=== PATIENT | female | born 1955 | race Caucasian/White ===

== ENCOUNTER 2017-06-18 18:57 | Inpatient (IN) | payer OTHER ==
[~2017-06-18] VITALS: Ht 172.7 cm; Wt 138.0 kg
--- NOTE | ~2017-06-18 | EEG ---
[facility] [place] [address] ELECTROENCEPHALOGRAM Name: MARISELA JOHN CURT Room #: 204-P ADM IN M.R.#: [id number] Admission: 06/18/17 Attend Phys: Kaden Ferguson DO Discharge: Date of : 51 Report #: [id number] THIS REPORT FOR: //name// CC: Justin Thapa DATE OF SERVICE: 06/19/2017 This patient is being evaluated for altered mental status. The EEG was done by placing the electrodes by standard 10-20 system of electrode placement. Both referential and sequential montages were used for recording. Background activity in this patient's EEG is about 7 Hz and 30 microvolt. On the left side, the activity is different than the right side. On the left side either the patient has a breach rhythm or may be some sharper activity is noticed. Photic stimulation is unremarkable. IMPRESSION: This is an abnormal EEG because it is disorganized and poorly formed in general. That is a nonspecific finding which can occur with encephalopathy, effect of psychotropic medication, dementia, etc. On the left side, some epileptiform activity may be present, but it is difficult to tell. No clear cut spike and slow wave activity was noticed on the left side. Thank you very much for this referral. <ELECTRONICALLY SIGNED> By: Rickie Trimble MD 06/21/172151 31 38 MD jasen Martinez
--- NOTE | ~2017-06-18 | HC ---
[facility] [place] [address] CONSULTATION Name: MARISELA JOHN CURT Room #: 204-P ADM IN M.R.#: [id number] Admission: 06/18/17 Attend Phys: Justin Ochoa MD Discharge: Date of : 51 Report #: [id number] THIS REPORT FOR: //name// CC: Justin Thapa DATE OF SERVICE: 06/18/2017 REFERRING PROVIDER: Justin Ochoa MD REASON FOR CONSULT: Abdominal pain with decreased level of consciousness and sepsis. HISTORY OF PRESENT ILLNESS: The patient is a 61-year-old obese female with a history of seizures and brain aneurysms who has undergone placement of a COLOR SPRAYER shunt as well as sustaining multiple strokes with left hemiparesis. The patient presented from her correction facility for complaints of altered mental status with her last known baseline mental status being 4 days ago. The patient was complaining of abdominal pain on palpation and as such, a thorough workup has been obtained in the Emergency Room in the form of laboratories and a CT scan of the abdomen and pelvis. The patient's labs showed a marked leukocytosis with a white blood cell count of 32.1 thousand and her urinalysis is consistent with a urinary tract infection. CT scan shows distended gallbladder with abnormal wall thickening and significant pericholecystic fluid tracking into the pericolic gutter from severe cholecystitis. Of note, the patient did present with fevers to 103 degrees as well as severe tachycardia. As the patient appears to have early sepsis with tachycardia, mild hypotension and is febrile all while having acute cholecystitis, indication was for admission and I am now asked to evaluate from a surgical standpoint. PAST MEDICAL HISTORY: Brain aneurysm repair x 2, prior stroke with left hemiparesis, seizure disorder, obstructive sleep apnea, morbid obesity, hypothyroidism, hypertension, prior DVTs and neuropathy. OUTPATIENT MEDICATIONS: Dilantin, senna S, zinc, Lipitor, baclofen, Cymbalta, Lasix, Neurontin, potassium, Synthroid, Megace, calcium and vitamin D3, baby aspirin, multivitamin, lactulose, Tylenol, nystatin powder and [place]son p.r.n. ALLERGIES: PENICILLIN. SOCIAL HISTORY: The patient does not utilize tobacco, alcohol or illicit drugs. FAMILY HISTORY: Reviewed and noncontributory. REVIEW OF SYSTEMS: Unobtainable secondary to the patient's altered mental status. [address] [place] [address] CONSULTATION Name: MARISELA JOHN CURT Room #: 204-P [facility] IN M.R.#: [id number] Admission: 06/18/17 Attend Phys: Justin Ochoa MD Discharge: Date of : 51 Report #: [id number] PHYSICAL EXAMINATION: VITAL SIGNS: Temperature 38.8, pulse 112, respirations 18, blood pressure 102/59. She weighs 374 pounds. GENERAL: She has altered mental status and moans with abdominal exam. She appears chronically ill. HEENT: Normocephalic, atraumatic. Pupils are equal, round, reactive to light. Her sclerae are nonicteric. NECK: Supple, without lymphadenopathy. Trachea midline. HEART: Tachycardic, but regular rhythm. LUNGS: Decreased breath sounds at their bases bilaterally. ABDOMEN: Obese, soft, nondistended. She has overt tenderness to palpation of the right upper quadrant with mild guarding. GENITOURINARY: Normal external female genitalia. EXTREMITIES: 4+ edema in her left lower leg, 1+ edema of the right lower leg consistent with her history of left lower extremity DVT. NEUROLOGIC: Moans when spoken to and moans loudly with exam. She reacts to pain, but does not follow commands or answer questions. PSYCHIATRIC: Unobtainable secondary to decreased level of consciousness. SKIN AND INTEGUMENT: No abnormal lesions or moles. LABORATORY AND X-RAY DATA: CBC shows white blood cell count of 32.1 thousand, hemoglobin 16.3, platelets 193,000. Her creatinine is 0.9. Liver function enzymes show only an elevation of alkaline phosphatase to 151. Her albumin is grossly low at 2.8. INR was normal at 1.2 with a PTT of 27.7. CT scan of the head shows chronic changes with a COLOR SPRAYER shunt in place. Urinalysis shows large bacteria and white blood cells with no squamous epithelial cells. CT scan of the abdomen and pelvis as per HPI shows a distended inflamed gallbladder with pericholecystic fluid tracking into the pericolic gutter consistent with severe acute cholecystitis. ASSESSMENT AND PLAN: A 61-year-old morbidly obese female with what appears to be early sepsis and decreased level of consciousness from severe acute cholecystitis. The patient does have a history of a DVT, multiple strokes, has severe protein calorie malnutrition and does not appear to be an acceptable surgical candidate emergently at this time. As such, the patient will be initiated on broad-spectrum IV antibiotic therapy and I will ask Interventional Radiology to place a percutaneous cholecystostomy tube for decompression and improvement in her overall clinical status. I did spend greater than 60 minutes evaluating the patient as well as discussing with various other providers involved in her care and all are in agreeance as to the approach moving forward. Infectious Disease will be asked to evaluate for both the cholecystitis and urinary tract infection for appropriate antibiotic therapy choices. [facility] [address] [place] [address] CONSULTATION Name: MARISELA JOHN CURT Room #: 204-P ADM IN M.R.#: [id number] Admission: 06/18/17 Attend Phys: Justin Ochoa MD Discharge: Date of : 51 Report #: [id number] I sincerely appreciate this consult. I will follow closely and leave any further recommendations in the patient's chart as appropriate. <ELECTRONICALLY SIGNED> By: Clarice Askew MD, TAMI 06/19/17 1512 1109 [id number] Clarice Askew MD, FACS /nt
--- NOTE | ~2017-06-18 | HC ---
[facility] [place] [address] CONSULTATION Name: MIRTHA JOHNORARoxanne ELIAS Room #: 204-P ADM IN M.R.#: [id number] Admission: 06/18/17 Attend Phys: Kaden Ferguson DO Discharge: Date of : 51 Report #: [id number] THIS REPORT FOR: //name// CC: Justin Thapa REASON FOR CONSULTATION: I was asked to evaluate concerning acute cholecystitis. HISTORY OF PRESENT ILLNESS: The patient was a 61-year-old with underlying history of cerebral aneurysms, POPULATION HEALTH MANAGER shunt with hydrocephalus and seizure disorder. She has a left hemiparesis from previous stroke and resides at [facility]. She presents now due to change in mental status. Question whether she had had a seizure. It appears that this symptom onset has been several days. The patient was unable to give any details of her history. She was admitted through the Emergency Room and placed on vancomycin and ceftriaxone. She had temperature up to 101.5 degrees. Hemodynamically, she has been stable and has required 3 liters of oxygen per nasal cannula. No nausea or vomiting. No diarrhea. Right upper extremity PICC was placed. ALLERGIES: PENICILLIN. Does tolerate cephalosporins. PAST MEDICAL HISTORY: Cerebral aneurysms, status post repair, stroke with left hemiparesis, seizure disorder, cerebrovascular disease, obstructive sleep apnea, hypothyroidism, obesity, hypertension, peripheral neuropathy, DVT, depressive disorder, hyperlipidemia, endometrial hyperplasia. SOCIAL HISTORY: Former smoker. No significant alcohol intake. ALLERGIES: PENICILLIN. MEDICATIONS: Prior to her admission included Dilantin, Lipitor, baclofen, Cymbalta, Lasix, Neurontin, potassium, Synthroid, Megace, calcium with vitamin D, aspirin, multivitamin, lactulose, hydrocodone. REVIEW OF SYSTEMS: The patient was unable to give any history. PHYSICAL EXAMINATION: VITAL SIGNS: Afebrile and hemodynamically stable. GENERAL: She was alert. Dense left hemiparesis. HEENT: Unremarkable. NECK: Supple. LUNGS: Clear anteriorly. HEART: Regular. ABDOMEN: Distended, diffusely tender. Indwelling Vasquez catheter. EXTREMITIES: Unremarkable. [facility] [address] [place] [address] CONSULTATION Name: MARISELA JOHN [facility] Room #: 204-P [facility] IN .R.#: [id number] Admission: 06/18/17 Attend Phys: Kaden Ferguson DO Discharge: Date of : 51 Report #: [id number] LABORATORY STUDIES: Hemoglobin 15.7, WBC 28.9 with 6% bands, platelet count 120,000. Sodium 138, potassium 4.4, bicarbonate of 27, creatinine 0.8, alkaline phosphatase 135, AST 24, ALT 14, bilirubin 0.4. Urinalysis, a few wbc's, many bacteria. Blood and urine cultures pending. CT scan of the abdomen shows right effusion with atelectasis, gallbladder inflammation with stones and fluid tracking around the gallbladder as well as into the right pericolic gutter and a small amount of fluid in the pelvis. CT scan of the head showed a POPULATION HEALTH MANAGER shunt in place. IMPRESSION AND PLAN: A 61-year-old [facility] resident with multiple comorbidities presents now with acute cholecystitis. I am suspecting some of the fluid in the pericolic gutter and pelvis, may be related to her POPULATION HEALTH MANAGER shunt. She does have inflammation and fluid around the gallbladder. Appears relatively high risk for surgical intervention. I have discussed with General Surgery and agree with need for gallbladder drainage. She will have a percutaneous cholecystostomy tube placed today. We will send fluid for culture. We will await blood cultures and continue with broad antibiotic coverage including vancomycin, cefepime and metronidazole. We will see how she responds clinically to decide next step in her care. <ELECTRONICALLY SIGNED> By: Ubaldo Conner MD 06/20/17 0915 1004 1249 Ubaldo Conner MD /nt
--- NOTE | ~2017-06-18 | HC ---
[facility] [place] [address] CONSULTATION Name: MARISELA JOHN Room #: 204-P ADM IN M.R.#: [id number] Admission: 06/18/17 Attend Phys: Kaden Ferguson DO Discharge: Date of : 51 Report #: [id number] THIS REPORT FOR: //name// CC: Justin Thapa DATE OF SERVICE: 06/19/2017 HISTORY OF PRESENT ILLNESS: This is a 61-year-old female patient who is unable to provide any history. I talked to the ER physician who took care of this patient last night and reviewed the records in the computer. The patient provided virtually no history. This patient had been in this hospital before and has seen Neurology Service before. I reviewed those records. It looks like this patient had aneurysm twice and that left him with paralysis on the left side. That also caused her to have seizures, but the further history about the seizure is not very clear. She lives in a intermediate. I reviewed the intermediate record and it would appear that she is on Dilantin as well as Vimpat. Presently she is n.p.o., so I have asked them to put her on IV medication with the same do and she had some jerking movements, but the history is not very well defined. She has been admitted in the past with a urinary tract infection and this time she is admitted with infection, but the source is not clear, but the suspected source is gallbladder. REVIEW OF SYSTEMS: I carried out the 14-point review of systems from the record. It looks like this patient had aneurysm twice. She has a history of seizure. She has an infection. She did have some jerking movement, but it is not clear whether that was really seizure or not. They had question about shunt, but I told them that is typically addressed by Neurosurgery. From the record I tried to do 14-point review and at some point she had pleural effusion, deep venous thrombosis, atelectasis, hypothyroidism. That was the relevant 14-point review of systems I can carry out. PAST MEDICAL HISTORY: Positive for aneurysm and seizure. FAMILY HISTORY: Unavailable, but she says she does not know anybody who had a stroke. SOCIAL HISTORY: She lives in a intermediate. PHYSICAL EXAMINATION: Pretty limited. She is sleepy, but she wakes up. When she wakes up, she does not know what month it is. She does not know what day it is. She does not know what hospital she is in. Record indicates that she has more memory than that. Cranial nerve examination 2-12 was attempted. She has a left facial palsy, I cannot tell about hemianopsia in this patient. She has a dense left hemiplegia. She does not know about the sensation. This hemiplegia has been present for a long time. She does not cooperate much with the reflexes [facility] [address] [place] [address] CONSULTATION Name: MARISELA JOHN CURT Room #: 204-P [facility] IN M.R.#: [id number] Admission: 06/18/17 Attend Phys: Kaden Ferguson DO Discharge: Date of : 51 Report #: [id number] or tone and she did not understand much instructions about cerebellar signs. I could not have a very good look at the patient's fundus. She is an obese person who may have some edema on the left leg. She is moderately built. I believe she can hear and her vision is adequate. There is no thyroid mass. Pulses are difficult to feel. Cardiac examinations appear noncontributory. There is no respiratory difficulty or rhonchi. DIAGNOSTIC DATA: She did have a CT scan of the head, which showed chronic changes, but no acute changes. LABORATORY DATA: Indicate a white count of 28.9. IMPRESSION: This patient appeared to have a systemic infection. She appeared to have encephalopathy. It is unlikely there is any central nervous system infection. Infectious Disease is going to follow up this patient and they are going to address that question. Some history of jerking is available. I do not believe they were seizure. I will get an EEG done to exclude that. We have put her on IV Dilantin and Vimpat. Once she is able to take p.o., we would like to switch her to p.o. The main management is going to be systemic. RECOMMENDATIONS: 1. We will check an EEG, although I do not think she is actively seizing. 2. Continue IV anticonvulsant till she is allowed to take p.o. 3. I do not think any further imaging study is needed at the moment. 4. We will see if she improves with improvement in systemic conditions. Dr. Gil will follow up this patient from tomorrow onward. <ELECTRONICALLY SIGNED> By: Rickie Trimble MD 06/21/17 2151 1102 1304 Rickie Trimble MD /nt
--- NOTE | ~2017-06-18 | EKG ---
[address] [employer] [place] [address] ELECTROCARDIOGRAM REPORT Name: DORAMARISELA Room #: 204-P ADM IN M.R.#: [id number] Admission: 06/18/17 Attend Phys: Justin Ochoa MD Discharge: Date of : 51 Report #: [id number] THIS REPORT FOR: //name// [facility] ED Test Date: 2017-06-18 Test Time: 19:12:25 Pat Name: MARISELA JOHN Department: Room: Gender: F Forensic Investigator: Iris MOBLEY : 1955 Requested By: Ubaldo Edgar Order Number: [id number] MD: Johny Post Measurements Intervals Satin Rate: 96 P: 134 PA: 210 QRS: 17 QRSD: 86 T: 18 QT: 354 QTc: 448 Interpretive Statements Sinus rhythm Nonspecific ST segment abnormalities Compared to ECG 07/05/2014 10:56:32 T-wave abnormality no longer present Electronically Signed On 06-19-2017 7:35:21 CDT by Johny Post [email or web address] <ELECTRONICALLY SIGNED> By: Johny Post MD 06/19/17 0735 11 11 Johny Post MD /MATT
[~2017-06-18 18:57] MED LIST: APAP500 PO; AQUACEL; ASPERDRINK81 MG PO; BACLOFEN20 MG PO; BAYER CHEWABLE81 MG PO; BISA-LAX5 MG PO; BOUDREAUXS10 GM; CONSTULOSE10 GM/15 M PO; CYMBALTA60 MG PO; DILANTIN 100 M100 MG PO; FUROSEMIDE 80 M80 M1 PO; HYDROCODONE-AP1 EAC6 PO; KLOR-CON 1010 MEQ PO; LEVOTHYROXIN0.075 MG PO; LEVOTHYROXINE0.2 M1 PO; LIPITOR20 MG PO; MEGESTROL ACETA40 MG PO; MELOXICAM15 MG PO; MULTIVITAMINS1 EAC7 PO; NEURONTIN600 MG PO; NYSTATIN 100,0015 G1; ONE DAILY MULT1 EAC2 PO; OYSTER SHELL C1 EA14 PO; SENNA S TABLET1 EACH PO; VIMPAT150 MG PO; VIMPAT50 MG PO
[2017-06-18 18:58] VITALS: BP 102/59
[2017-06-18 19:48] LABS: HEMATOCRIT 48.2 % (37.0-47.0); HEMOGLOBIN 16.3 gm/dL (12.0-15.0); MCH 31.2 pg (26.0-34.0); MCHC 33.9 g/dL (28.0-37.0); MCV 91.8 fL (80.0-100.0); RBC 5.24 mil/uL (4.20-5.00); RDW 15.7 % (10.5-14.5); WBC 32.1 thou/uL (4.0-11.0)
[2017-06-18 20:00] LABS: ANION GAP 7 mmol/L (7-16); BUN 17 mg/dL (7-18); CALCIUM 9.2 mg/dL (8.5-10.1); CHLORIDE 101 mmol/L (98-107); CO2 30 mmol/L (21-32); CREATININE 0.9 mg/dL (0.6-1.0); GLUCOSE 127 mg/dL (74-106); SODIUM 138 mmol/L (136-145)
[2017-06-18 20:04] LABS: APTT 27.7 Seconds (24.5-32.8); INR 1.2; PROTIME 11.8 Seconds (9.3-11.4)
[2017-06-18 20:09] LABS: ALBUMIN 2.8 g/dL (3.4-5.0); MAGNESIUM 1.9 mg/dL (1.8-2.4); SGOT 27 U/L (15-37); SGPT 27 U/L (30-65); TOTAL BILIRUBIN 0.4 mg/dL (<0.1-1.0); TOTAL PROTEIN 7.4 g/dL (6.4-8.2); TROPONIN-I < 0.04 ng/mL (<0.06)
[2017-06-18 20:23] LABS: ABSOLUTE NEUTROPHILS 27.6 thou/uL (1.4-8.2)
[2017-06-18 20:24] LABS: PLATELET COUNT 193 thou/uL (150-400)
[2017-06-18 20:25] LABS: LARGE PLATELETS RARE
[2017-06-18 20:33] LABS: URINE BILIRUBIN NEGATIVE (Negative); URINE BLOOD TRACE (Negative); URINE CLARITY SL CLOUDY; URINE COLOR YELLOW; URINE GLUCOSE-RANDOM* NEGATIVE (Negative); URINE KETONES NEGATIVE (Negative); URINE NITRITE-REFLEX NEGATIVE (Negative); URINE PROTEIN (DIPSTICK) NEGATIVE (Negative); URINE SPECIFIC GRAVITY >= 1.030 (1.005-1.035); URINE UROBILINOGEN 0.2 E.U./dl (0.2-1.0)
[2017-06-18 20:35] LABS: URINE LEUKOCYTES-REFLEX 1+ (Negative)
[2017-06-18 20:44] LABS: AMP/METHAMP Negative (Negative); BARBITURATES Negative (Negative); BENZODIAZEPINES Negative (Negative); COCAINE Negative (Negative); METHADONE Negative (Negative); OPIATES Negative (Negative); PCP Negative (Negative)
[2017-06-18 20:46] LABS: SQUAMOUS 0-3 Few /LPF (0-3)
[2017-06-18 20:47] LABS: URINE RBC 0-2 Rare /HPF (0-2); URINE WBC-REFLEX 6-15 Few /HPF (0-5); WBC CLUMPS Few (None Seen)
[2017-06-18 20:48] LABS: BACTERIA-REFLEX >30 Many /HPF (None Seen); CASTS None Seen /LPF (None Seen); CRYSTALS None Seen /LPF (None Seen)
[2017-06-18 22:09] VITALS: BP 135/59
[2017-06-18 22:40] VITALS: BP 114/40
[2017-06-19 00:17] VITALS: BP 127/50
[2017-06-19] MEDS ORDERED: VIMPAT200 MG PO (02:47)
[2017-06-19] MEDS ORDERED: MIRALAX17 GM PO (02:50)
[2017-06-19] MEDS ORDERED: XARELTO15 MG PO (02:51)
[2017-06-19] MEDS ORDERED: SYNTHROID175 MCG PO (02:54)
[2017-06-19] MEDS ORDERED: JUVEN PACKET1 EAC1 PO (03:06)
[2017-06-19 03:29] LABS: HEMATOCRIT 49.2 % (37.0-47.0); HEMOGLOBIN 15.7 gm/dL (12.0-15.0); MCV 93.6 fL (80.0-100.0); PLATELET COUNT 120 thou/uL (150-400); RBC 5.25 mil/uL (4.20-5.00); RDW 16.3 % (10.5-14.5); WBC 28.9 thou/uL (4.0-11.0)
[2017-06-19 03:44] LABS: ALBUMIN 2.2 g/dL (3.4-5.0); CALCIUM 8.5 mg/dL (8.5-10.1); CREATININE 0.8 mg/dL (0.6-1.0); TOTAL BILIRUBIN 0.4 mg/dL (<0.1-1.0); TOTAL PROTEIN 7.1 g/dL (6.4-8.2)
[2017-06-19 03:47] LABS: POTASSIUM 4.4 mmol/L (3.5-5.1)
[2017-06-19 04:12] LABS: ABSOLUTE NEUTROPHILS 25.4 thou/uL (1.4-8.2); ANISOCYTOSIS 1+; LARGE PLATELETS OCCASIONAL; TOXIC GRANULATION 1+
[2017-06-19 04:44] VITALS: BP 128/44
[2017-06-19 08:15] VITALS: BP 125/66
[2017-06-19 11:12] VITALS: BP 126/55
[2017-06-19 16:21] VITALS: BP 140/60
[2017-06-19 20:00] VITALS: BP 134/43
[2017-06-20 04:06] VITALS: BP 94/45
[2017-06-20 04:52] LABS: ABSOLUTE NEUTROPHILS 17.9 thou/uL (1.4-8.2); BASOPHILS 0.6 % (0.0-2.0); EOSINOPHILS 0.1 % (0.0-3.0); HEMATOCRIT 37.8 % (37.0-47.0); LYMPHOCYTES 4.6 % (24.0-44.0); MCH 30.1 pg (26.0-34.0); MCHC 32.6 g/dL (28.0-37.0); MCV 92.3 fL (80.0-100.0); MONOCYTES 4.5 % (1.0-8.0); PLATELET COUNT 156 thou/uL (150-400); POLYS 90.2 % (36.0-66.0); RBC 4.09 mil/uL (4.20-5.00); RDW 15.9 % (10.5-14.5); WBC 19.9 thou/uL (4.0-11.0)
[2017-06-20 04:55] LABS: HEMOGLOBIN 12.3 gm/dL (12.0-15.0)
[2017-06-20 05:01] LABS: CALCIUM 8.2 mg/dL (8.5-10.1); CREATININE 0.6 mg/dL (0.6-1.0); POTASSIUM 3.4 mmol/L (3.5-5.1)
[2017-06-20 08:56] VITALS: BP 133/54
[2017-06-20 11:43] VITALS: BP 122/76
[2017-06-20 15:47] VITALS: BP 129/48
[2017-06-20 19:42] VITALS: BP 127/57
[2017-06-21 04:48] VITALS: BP 129/55
[2017-06-21 06:48] LABS: ABSOLUTE NEUTROPHILS 11.1 thou/uL (1.4-8.2); BASOPHILS 0.4 % (0.0-2.0); EOSINOPHILS 0.4 % (0.0-3.0); HEMOGLOBIN 11.5 gm/dL (12.0-15.0); LYMPHOCYTES 7.8 % (24.0-44.0); MCH 30.3 pg (26.0-34.0); MCHC 32.8 g/dL (28.0-37.0); MCV 92.2 fL (80.0-100.0); MONOCYTES 5.3 % (1.0-8.0); PLATELET COUNT 162 thou/uL (150-400); POLYS 86.1 % (36.0-66.0); RDW 15.4 % (10.5-14.5); WBC 12.9 thou/uL (4.0-11.0)
[2017-06-21 07:02] LABS: CALCIUM 8.3 mg/dL (8.5-10.1); CREATININE 0.6 mg/dL (0.6-1.0)
[2017-06-21 07:40] VITALS: BP 117/60
[2017-06-21 11:39] VITALS: BP 136/55
[2017-06-21 15:25] VITALS: BP 127/58
[2017-06-21 19:38] VITALS: BP 144/61
[2017-06-22 04:38] VITALS: BP 141/68
[2017-06-22 05:03] LABS: ABSOLUTE NEUTROPHILS 7.6 thou/uL (1.4-8.2); BASOPHILS 0.9 % (0.0-2.0); EOSINOPHILS 4.4 % (0.0-3.0); HEMATOCRIT 35.7 % (37.0-47.0); HEMOGLOBIN 11.9 gm/dL (12.0-15.0); LYMPHOCYTES 11.9 % (24.0-44.0); MCH 30.5 pg (26.0-34.0); MCHC 33.4 g/dL (28.0-37.0); MCV 91.1 fL (80.0-100.0); MONOCYTES 7.4 % (1.0-8.0); PLATELET COUNT 182 thou/uL (150-400); POLYS 75.4 % (36.0-66.0); RBC 3.91 mil/uL (4.20-5.00); RDW 15.3 % (10.5-14.5); WBC 10.1 thou/uL (4.0-11.0)
[2017-06-22 05:16] LABS: CALCIUM 8.2 mg/dL (8.5-10.1); CREATININE 0.6 mg/dL (0.6-1.0)
[2017-06-22 05:20] LABS: POTASSIUM 2.7 mmol/L (3.5-5.1)
[2017-06-22 07:22] VITALS: BP 158/66
[2017-06-22 11:36] VITALS: BP 143/63
[2017-06-22 15:25] VITALS: BP 143/63
== END 2017-06-22 17:36 | DRG 871 ==
LOC: ER 18:57 → EROBS 20:34 → 2N 20:34
PROVIDERS: Emergency Medicine; Family Medicine; Nurse Practitioner Family; Surgery
PROC: 05HB33Z Insertion of Infusion Device into Right Basilic Vein, Percutaneous Approach (ICD-10-PCS; principal; 2017-06-19)
PROC: 0F9430Z Drainage of Gallbladder with Drainage Device, Percutaneous Approach (ICD-10-PCS; principal; 2017-06-19)
DX: A41.9 Sepsis, unspecified organism (principal); G93.40 Encephalopathy, unspecified; K81.0 Acute cholecystitis; Z68.42 Body mass index [BMI] 45.0-49.9, adult; I69.954 Hemiplegia and hemiparesis following unspecified cerebrovascular disease affecting left non-dominant side; N39.0 Urinary tract infection, site not specified; G91.9 Hydrocephalus, unspecified; G40.909 Epilepsy, unspecified, not intractable, without status epilepticus; E03.9 Hypothyroidism, unspecified; I67.1 Cerebral aneurysm, nonruptured; I10 Essential (primary) hypertension; G62.9 Polyneuropathy, unspecified; G47.33 Obstructive sleep apnea (adult) (pediatric); E66.01 Morbid (severe) obesity due to excess calories; F32.9 Major depressive disorder, single episode, unspecified; E78.5 Hyperlipidemia, unspecified; Z86.718 Personal history of other venous thrombosis and embolism; Z79.01 Long term (current) use of anticoagulants; Z79.82 Long term (current) use of aspirin; Z87.891 Personal history of nicotine dependence; Z79.899 Other long term (current) drug therapy; Z98.2 Presence of cerebrospinal fluid drainage device; Z88.0 Allergy status to penicillin
CPT/HCPCS: 10081; 27000

== ENCOUNTER 2017-09-29 05:29 | Day surgery (SDC) | payer OTHER ==
[~2017-09-29] VITALS: Ht 167.6 cm; Wt 171.9 kg
[2017-09-29] VITALS (7 sets, daily range): BP systolic 129–153; BP diastolic 47–89
--- NOTE | ~2017-09-29 | O ---
[facility] [place] [address] OPERATIVE REPORT Name: MRAISELA JOHN CURT Room #: 450-P [facility] M..#: [id number] Admission: 09/29/17 Attend Phys: Clarice Askew MD, Discharge: Date of : 51 Report #: [id number] THIS REPORT FOR: //name// CC: James Askew DATE OF SERVICE: 09/29/2017 PREOPERATIVE DIAGNOSIS: [id number] cholecystitis with indwelling cholecystostomy tube. POSTOPERATIVE DIAGNOSES: Ritut-oi-dwikfri cholecystitis with indwelling cholecystostomy tube. PROCEDURE: Laparoscopic cholecystectomy with intraoperative cholangiogram. SURGEON: Clarice Askew M.D. EDGE BURNISHER UPPERS: ALIS Santa. ANESTHESIA: General endotracheal anesthesia. ESTIMATED BLOOD LOSS: Minimal (less than 5 mL). COMPLICATIONS: None appreciated. SPECIMENS: Gallbladder to pathology. INDICATIONS: The patient is a 62-year-old super morbidly obese female who was critically ill several weeks ago with acute cholecystitis, for which she underwent placement of a percutaneous cholecystostomy tube. The patient has been managed with antibiotics at that time and has improved markedly and now presents for definitive surgical management as delineated above. DESCRIPTION OF PROCEDURE: After explaining the risks, benefits and alternatives of the procedure with the patient in detail in the preoperative holding area and obtaining written consent, the patient was brought to the operating room and placed supine on the operating room table. After conducting a thorough timeout procedure, verifying correct patient and procedure, the patient was given general endotracheal anesthesia. Once adequate anesthesia was obtained, her SCDs were hooked up to pneumatic compression device. She was given a preoperative dose of antibiotics in line with the SCIP protocol. The patient's abdomen was prepped and draped in a standard surgical sterile fashion. A 5 mL of 0.5% Marcaine with epinephrine were used to anesthetize the skin in the supraumbilical location. A #15 bladed scalpel was used to create a [facility] [address] [place] [address] OPERATIVE REPORT Name: DORAMARISELA CURT Room #: 450-[facility]#: [id number] Admission: 09/29/17 Attend Phys: Clarice Askew MD, Discharge: Date of : 53 Report #: [id number] 1 cm transverse skin incision at this location. An 11-mm Visiport was placed over 0-degree 5-mm laparoscope and was introduced through this incision site. Once intra-abdominal placement was verified visually, the obturator for the trocar and laparoscope were both removed and the abdomen was insufflated to 15 mmHg using carbon dioxide gas. The laparoscope was changed to a 5-mm 30-degree laparoscope which was re-introduced through this trocar. The entire abdomen was evaluated to ensure no injury upon entry. There were marked adhesions in the upper abdomen of what appeared to be transverse colon and hepatic flexure stuck to the anterior abdominal wall. The patient was placed in reverse Trendelenburg with right side elevated and I proceeded to place 2 additional trocars, one in the subxiphoid location and one in the right midclavicular line in the subcostal location on the right. Both were placed under direct vision after anesthetizing the skin at each location with 5 mL of 0.5% Marcaine with epinephrine and I had created small skin nicks using #15 bladed scalpel. I now performed lysis of adhesions, taking down this transverse colon from the abdominal wall using EndoShears, staying right along the abdominal wall. Luckily, there was significant amount of epiploic fat stuck to the abdominal wall, so I could stay well away from the bowel wall at all times. Once I had taken the entire colon down, I was able to place an additional 5-mm trocar in the right flank under direct vision, again after anesthetizing at that location with 5 mL of 0.5% Marcaine with epinephrine and I created a small skin julien using #15 bladed scalpel. The transverse colon was peeled off of the gallbladder. Again, the epiploic from the transverse colon was stuck to the gallbladder and not the bowel itself. I now performed an intraoperative cholangiogram injecting contrast down the indwelling cholecystostomy tube, showing a patent long cystic duct with both intrahepatic and extrahepatic bile ducts becoming opacified. There was antegrade flow of contrast in the duodenum, with no evidence of filling defects or obstruction, other than a stone seen in the cystic duct near the cholecystocystic junction. The cholecystostomy tube was then cut externally and removed and passed off the field and I transected the tract intra-abdominally at the level of the anterior abdominal wall with Harmonic scalpel to help seal the tract close. Using the inferolateral most port along the patient's right flank, the fundus of the gallbladder was grasped and retracted cephalad. Careful tedious dissection was now undertaken down around the cholecysto-cystic junction using a combination of Harmonic scalpel and hook and [place] dissector. Once I had attained a critical view, namely the cystic duct emanating from the infundibulum of the gallbladder and coursing the common bile duct as well as the cystic artery running in the surface of the gallbladder, I had created a window behind each. I transected the cystic artery using Harmonic scalpel between sets of clips. The cystic duct was markedly dilated and clips were not able to go all the way across the duct and as such, I transected at the level of the gallbladder with endoshears to allow extraction of the cystic duct stone. Once that had been successfully performed, [facility] [address] [place] [address] OPERATIVE REPORT Name: MARISELA JOHN CURT Room #: 450-P [facility]..#: [id number] Admission: 09/29/17 Attend Phys: Clarice Askew MD, Discharge: Date of : 53 Report #: [id number] the Harmonic scalpel was used on the cystic duct stump to help seal it shut and then I used 0 PDS Endoloop x 2 to suture the cystic duct stump remnant. This was seated nicely and appeared occluded. Further retraction at the infundibulum of the gallbladder in cephalad direction allowed me to elevate the gallbladder off the liver bed using Harmonic scalpel for hemostasis. Once completely detached, the laparoscope was removed, changed with a right midclavicular 5-mm port and the EndoCatch bag was placed in the supraumbilical trocar. The specimen was placed within it under direct vision. The pursestring suture was drawn and specimen was removed from the abdomen under direct vision. I then closed the supraumbilical fascial incision using 0 PDS suture on the Oracio-Tamar suture passer device under direct vision and tied this down. The gallbladder fossa was evaluated. There was complete hemostasis. The cystic duct stump remnant appeared healthy and sealed with the Endoloops. No other pathology was seen. The abdomen was fully desufflated. All remaining trocars were removed under direct vision. A 4-0 Monocryl was used in a standard subcuticular fashion for all skin incisions and Dermabond glue was applied to all skin wounds. The gallbladder was opened on the back table, showing significant findings of gallbladder wall thickening and edema with [id number] cholecystitis changes and gallstones, but no other pathologic findings were identified. At the end of the procedure, all instrument, needle and sponge counts were correct. The patient tolerated the procedure without incident, was awakened in the operating room and transitioned to the recovery room in stable condition with no apparent complications. <ELECTRONICALLY SIGNED> By: Clarice Askew MD, FACS 09/30/17 0734 [id number] [id number] Clarice Askew MD, FACS /nt
[~2017-09-29 05:29] MED LIST changes: -APAP500 PO; +AQUACEL AG FOA1 EAC7 TOP; +DILANTIN100 MG PO; +JUVEN PACKET1 EAC1 PO; +MIRALAX17 GM PO; -NYSTATIN 100,0015 G1; +NYSTATIN 100,0015 G1 TOP; +SENNA PLUS TAB1 EACH PO; +SYNTHROID175 MCG PO; +SYNTHROID25 MC1 PO; +TYLENOL EXTRA500 MG PO; +VIMPAT200 MG PO; +XARELTO15 MG PO
[2017-09-29 10:35] LABS: HEMATOCRIT 42.7 % (37.0-47.0); HEMOGLOBIN 14.1 gm/dL (12.0-15.0)
[2017-09-29 10:42] LABS: CALCIUM 9.2 mg/dL (8.5-10.1); CREATININE 0.7 mg/dL (0.6-1.0); POTASSIUM 3.8 mmol/L (3.5-5.1)
[2017-09-30 00:03] VITALS: BP 118/63
[2017-09-30 04:50] VITALS: BP 120/62
[2017-09-30 05:07] LABS: GLYCOHEMOGLOBIN (HGB A1C) 5.1 % (4.8-5.6)
[2017-09-30 06:46] LABS: ABSOLUTE NEUTROPHILS 4.8 thou/uL (1.4-8.2); BASOPHILS 0.7 % (0.0-2.0); HEMATOCRIT 39.2 % (37.0-47.0); HEMOGLOBIN 12.9 gm/dL (12.0-15.0); LYMPHOCYTES 18.3 % (24.0-44.0); MCH 29.5 pg (26.0-34.0); MCHC 32.8 g/dL (28.0-37.0); MCV 89.8 fL (80.0-100.0); MONOCYTES 9.8 % (1.0-8.0); PLATELET COUNT 204 thou/uL (150-400); POLYS 67.2 % (36.0-66.0); RBC 4.36 mil/uL (4.20-5.00); RDW 15.3 % (10.5-14.5); WBC 7.2 thou/uL (4.0-11.0)
[2017-09-30 06:56] LABS: CALCIUM 8.6 mg/dL (8.5-10.1); CREATININE 0.7 mg/dL (0.6-1.0)
[2017-09-30 08:00] VITALS: BP 131/54
== END 2017-09-30 16:33 | disposition short-term general hospital (02) ==
LOC: OR 05:29 → TBA 05:30 → OR 09:37 → 4W 15:25 → OR 09-30 16:33
PROVIDERS: Anesthesiology; Hospitalist; Surgery
DX: K81.2 Acute cholecystitis with chronic cholecystitis (principal); I10 Essential (primary) hypertension; E03.9 Hypothyroidism, unspecified; G40.909 Epilepsy, unspecified, not intractable, without status epilepticus; E78.00 Pure hypercholesterolemia, unspecified; G47.33 Obstructive sleep apnea (adult) (pediatric); E66.09 Other obesity due to excess calories; F32.9 Major depressive disorder, single episode, unspecified; Z98.890 Other specified postprocedural states; Z86.73 Personal history of transient ischemic attack (TIA), and cerebral infarction without residual deficits; Z97.8 Presence of other specified devices; Z87.440 Personal history of urinary (tract) infections; Z86.718 Personal history of other venous thrombosis and embolism; Z79.01 Long term (current) use of anticoagulants; Z68.44 Body mass index [BMI] 60.0-69.9, adult; Z79.899 Other long term (current) drug therapy
CPT/HCPCS: 10047; 50010; 50101; 50249; 50411; 50555; 50558; 50962; 51297; 51975; 52265; 53307; 54022; 54118; 55245; 55317; 56462; 56525; 56526; 62110; 62900; 65130; 70005

== ENCOUNTER 2019-03-14 11:18 | Inpatient (IN) | payer OTHER ==
[~2019-03-14] VITALS: Ht 167.6 cm; Wt 108.4 kg
--- NOTE | ~2019-03-14 | HC ---
[facility] [place] [address] CONSULTATION Name: MARISELA JOHN Room #: 213-P ADM IN M.R.#: [id number] Admission: 03/14/19 Attend Phys: Sara Winston MD Discharge: Date of : 53 Report #: [id number] THIS REPORT FOR: //name// CC: Malou Nicolevera Sara Winston REASON FOR CONSULTATION: Hypernatremia. REASON FOR PRESENTATION: Abnormal labs. HISTORY OF PRESENT ILLNESS: Those were obtained from the medical chart. The patient is not able to provide me with the details of her history. She has been on our facility on numerous occasions. 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 This was due to ruptured aneurysm. She has had issues with craniotomies on both sides and SERVICE DESK TECHNICIAN shunt. She was left with significant hemiplegia. She resides in a nursing facility. She has a history of hypertension. She was found to have hypernatremia and was sent for our facility to further evaluate. PAST MEDICAL HISTORY: 1. Hypertension. 2. Hyperlipidemia. 3. Obstructive sleep apnea. 4. Deep venous thrombosis. 5. Hypothyroidism. 6. Dense hemiplegia. 7. Status post craniotomy. 8. SERVICE DESK TECHNICIAN shunt. ALLERGIES: PENICILLIN. SOCIAL HISTORY: She resides in a nursing facility. FAMILY HISTORY: Unable to obtain. REVIEW OF SYSTEMS: Unable to obtain given the patient's mental status. MEDICATIONS: 1. Baclofen. 2. Aspirin. 3. Xarelto. 4. Phenytoin. 5. Levothyroxine. 6. Atorvastatin. 7. Vimpat[address] [facility] [address] [place] [address] CONSULTATION Name: MARISELA JOHN CURT Room #: 213-P ADM IN M.R.#: [id number] Admission: 03/14/19 Attend Phys: Sara Winston MD Discharge: Date of : 53 Report #: [id number] PHYSICAL EXAMINATION: GENERAL: She is lethargic, confused. VITAL SIGNS: Blood pressure 117/44, temperature 36.8, pulse rate 68, respiratory rate 16. HEAD AND NECK: No jugular venous distention. CHEST: Decreased air entry bilaterally with no crackles. CARDIOVASCULAR: Regular with no rub detected. ABDOMEN: Soft and nontender. EXTREMITIES: Lower extremities, +1 edema. LABORATORY DATA: Reviewed. Sodium is 156, potassium is 3.2, BUN is 33, and creatinine 0.6. TSH is significantly depressed at 0.074. ASSESSMENT, IMPRESSION AND PLAN: 1. Hypernatremia due to free water deficit. 2. Discontinue all current IV fluids. 3. Initiate on free water. 4. Serial sodiums. 5. Management of her other comorbid issues per primary team. I will stop her lactulose to slow down her bowel movement given her significant hypernatremia and the significant free water deficit. By: [id number] Cristino Moseley MD /yana
--- NOTE | ~2019-03-14 | H ---
[facility] [place] [address] HISTORY AND PHYSICAL Name: MARISELA JOHN Room #: 170-12 ADM IN M.R.#: [id number] Admission: 03/14/19 Attend Phys: Sara Winston MD Discharge: Date of : 53 Report #: [id number] THIS REPORT FOR: //name// CC: Malou Hernandez Sara Winston DATE OF SERVICE: 03/14/2019 CHIEF COMPLAINT: "I had not been feeling well with decreased oral intake for the last several days." HISTORY OF PRESENT ILLNESS: The patient is a very pleasant 63-year-old female with a very complex medical history and basically has been a resident of long-term care [facility] with a diagnosis of prior ischemic stroke with left-sided hemiparesis and contractures, also has COPD, hypertension, coronary artery disease, hydrocephalus, obstructive sleep apnea. The patient informs me that she has been having declining appetite and decreased oral intake for a long time. She is unable to tell me in detail what exactly and how long this has been going on. The patient absolutely denies any pain as a cause of not eating food and she denies any depression or suicidal ideation. The patient informs me that she needs help with all of her activities of daily living and is pretty much bed-bound and she has chronic decubitus ulcer, which is the main reason where she has pain from and she is on pain medications and would like to resume her pain medications. The patient has been sent from the long-term [facility] secondary to abnormal labs. The patient gets routine labs and her last labs were done on 01/09/2019 when her sodium was 142 and potassium was 4.0; however, yesterday, the patient had labs with a sodium of 153, potassium 3.0, BUN 30, creatinine 0.7, glucose 122 and the patient was therefore transferred here for acute hypernatremia. PAST MEDICAL HISTORY: As indicated above, 1. The patient has chronic decubitus ulcer. 2. Hemiparesis with contractures in the left upper extremity as well as lower extremity. 3. Ventriculoperitoneal shunt status. 4. Hypothyroidism. 5. History of deep venous thrombosis and chronic anticoagulation. 6. Brain aneurysm repairs x 2. 7. Seizure disorder. 8. Obstructive sleep apnea. 9. Morbid obesity. 10. Neuropathy. 11. Malnutrition. 12. Debility. PAST SURGICAL HISTORY: Significant for, [facility] [address] [place] [address] HISTORY AND PHYSICAL Name: DORAMARISELA [facility] Room #: 170-12 [facility]#: [id number] Admission: 03/14/19 Attend Phys: Sara Winston MD Discharge: Date of : 53 Report #: [id number] 1. Brain aneurysm repair x 2. 2. Cholecystectomy with cholecystostomy drain placed and ultimately was removed. ALLERGIES: PENICILLIN. The patient does not recall the reason for allergies. FAMILY HISTORY: Mother had breast cancer as well as uterine cancer. No other history is available. CURRENT MEDICATIONS: Xarelto, Lipitor, baclofen, Lasix, gabapentin, Vimpat, Megace, aspirin, Synthroid, Dilantin and Epps. PERSONAL AND SOCIAL HISTORY: The patient denies any tobacco or alcohol use. She is DNR and Nel John is DPOA, her phone number is [phone] and patient has out of hospital DNR as well as the patient wishes to be DNR here. Orders are written. The patient denies any tobacco or alcohol use and has been a resident of long-term care facility for some time. REVIEW OF SYSTEMS: Ten point review of system was done and patient denies any fever, shaking chills, night sweats, nausea, vomiting, diarrhea or constipation. She usually does deal with constipation and also has some urinary retention issues as well. The patient wears a diaper and does not have any dysuria and denies any pain other than in the decubitus ulcer area in the back. The patient denies any dizziness, lightheadedness or syncopal episodes. She does complain of anorexia and decreased appetite and decreased oral intake for the last several days, but is unable to exactly tell me the reason for decreased oral intake. PHYSICAL EXAMINATION: VITAL SIGNS: Temperature 36.8, heart rate 99, respirations 18, blood pressure 142/88, pulse oximetry 94% on room air. GENERAL: Alert and oriented to person and place, very pleasant 63-year-old female with very poor personal hygiene and unkempt appearance and a dense left-sided hemiparesis with contractures noted in the left upper extremity as well as left lower extremity. The patient is in no acute cardiopulmonary distress. HEENT: Normocephalic, atraumatic. The patient tends to shut her eyes down and is not letting me examine her eyes, some secretions noted at the eye margins and no drainage noted. No erythema noted. Oropharynx, very poor hygiene without any mucous membrane lesions. The patient does have some coating of the mucous membrane with some sloughing noted on the left side of the cheek area and the tongue area consistent with thrush. NECK: Supple, no lymphadenopathy, no JVD. HEART: S1, S2, regular. No murmur, no S3, no S4. LUNGS: Clear to auscultation bilaterally with good effort and no chest wall tenderness. [facility] [place] [address] HISTORY AND PHYSICAL Name: MARISELA JOHN CURT Room #: 170-12 ADM IN M.R.#: [id number] Admission: 03/14/19 Attend Phys: Sara Winston MD Discharge: Date of : 53 Report #: [id number] ABDOMEN: Soft. The patient has significant tenderness in the suprapubic area. Otherwise, abdomen is soft, nontender, nondistended, normal active bowel sounds. EXTREMITIES: The patient has left upper extremity and left lower extremity with flaccid paralysis with contractures noted and gluteal region with a decubitus ulcer noted. LABORATORY DATA AND X-RAYS: The patient has WBC elevated at 13,400, hemoglobin high at 17.2, hematocrit 53, platelet count 243, segmented neutrophil elevated at 81.8%. The patient has chemistry significant for sodium 150; potassium 2.5, critically low; chloride 107, bicarbonate 36, anion gap 7; BUN 34, elevated; and creatinine 0.9, GFR is 63. Glucose 114, calcium 9.1, magnesium 2.2. The patient has liver enzymes pending at the time of dictation as they have been added to the blood work and UA and urine culture have been sent from the Emergency Room. Vasquez catheter for urinary retention has been requested and urinalysis and urine culture have been asked to be sent at that time. Chest x-ray is pending. ASSESSMENT AND PLAN: 1. Severe dehydration with hypernatremia likely secondary to hypovolemic hypernatremia. Normal saline at 75 mL per hour has been started. The patient will be monitored closely for renal function and we will go ahead and get urine sodium and if the patient does not respond, then we will consult Nephrology. 2. For critical hypokalemia, potassium has been replaced. Magnesium is within normal limits; however, we would go ahead and give 20 mEq b.i.d. to replace after bedside swallow evaluation is done. 3. For the decubitus ulcer, we will go ahead and consult Dr. Alan and we will get the low air pressure mattress for the patient and will send Gram stain culture and sensitivity from the wound culture. The patient has been afebrile and there is mild leukocytosis. At the present time, I would wait until the patient has been seen by the Wound Care and this specimen has been sent, and then we will start antibiotics empirically for the wound with vancomycin and Zosyn. However, THE PATIENT IS ALLERGIC TO PENICILLIN, so we will go ahead and give vancomycin and Levaquin for antibiotic along with Flagyl to cover anaerobes. 4. For obstructive sleep apnea, we will start CPAP. 5. For hypertension, we will write hydralazine and resume home medications. 6. For chronic obstructive pulmonary disease, we will resume her home DuoNeb breathing treatment. The patient's chronic obstructive pulmonary disease is currently compensated. We will use hydralazine for systolic blood pressure greater than 150 mmHg. 7. For hyperlipidemia, we will resume statin. 8. Coronary artery disease appears to be compensated. The patient is asymptomatic. We would go ahead and resume her home medications. 9. For history of deep venous thrombosis, the patient is on Xarelto. We will resume her Xarelto. The patient's do not resuscitate order has been written and fall precaution has been written and plan of care discussed with the patient as [facility] [address] [place] [address] HISTORY AND PHYSICAL Name: MARISELA JOHN [facility] Room #: 170-12 ADM IN M.R.#: [id number] Admission: 03/14/19 Attend Phys: Sara Winston MD Discharge: Date of : 51 Report #: [id number] well as Emergency Room provider who is admitting the patient. 10. For gastrointestinal prophylaxis, we will give Pepcid and for deep venous thrombosis prophylaxis, the patient is already on Xarelto. By: [id number] Sara Winston MD /nt
[2019-03-14 11:19] VITALS: BP 142/88
[2019-03-14 12:10] LABS: CALCIUM 9.1 mg/dL (8.5-10.1); CREATININE 0.9 mg/dL (0.6-1.0); MAGNESIUM 2.2 mg/dL (1.8-2.4)
[2019-03-14 12:11] LABS: POTASSIUM 2.5 mmol/L (3.5-5.1)
[2019-03-14 12:21] LABS: BASOPHILS 0.9 % (0.0-2.0); EOSINOPHILS 0.8 % (0.0-3.0); HEMOGLOBIN 17.2 gm/dL (12.0-15.0); LYMPHOCYTES 11.6 % (24.0-44.0); MCH 31.3 pg (26.0-34.0); MCHC 32.5 g/dL (28.0-37.0); MCV 96.3 fL (80.0-100.0); MONOCYTES 4.9 % (1.0-8.0); PLATELET COUNT 243 thou/uL (150-400); POLYS 81.8 % (36.0-66.0); RDW 15.3 % (10.5-14.5); WBC 13.4 thou/uL (4.0-11.0)
[2019-03-14 16:38] LABS: ALBUMIN 2.3 g/dL (3.4-5.0); DIRECT BILIRUBIN 0.2 mg/dL (<0.1-0.2); TOTAL BILIRUBIN 0.7 mg/dL (<0.1-1.0); TOTAL PROTEIN 8.1 g/dL (6.4-8.2)
[2019-03-14 17:45] VITALS: BP 129/66
--- NOTE | 2019-03-14 18:56 | NUR ---
ASSUMED CARE OF PT AT APPROX 1745 FROM ER. ADMISSION ORDERS COMPLETE MUCH POSSIBLE PT IS VERY SLEEP AND HARD TO AROUSE. STILL NEED A URINE SAMPLE ER WAS UNABLE TO OBTAIN VIA STRAIGHT CATH. PT IS ORIENTED WHEN AROUSED. NO C/O PAIN. WILL CONTINUE TO MONITOR AND FOLLOW POC.
[2019-03-14 20:23] VITALS: BP 110/67
[2019-03-14 20:32] LABS: CALCIUM 8.5 mg/dL (8.5-10.1); CREATININE 0.9 mg/dL (0.6-1.0)
[2019-03-14 20:34] LABS: POTASSIUM 2.5 mmol/L (3.5-5.1)
[2019-03-14 22:25] LABS: URINE BLOOD 3+ (Negative); URINE CLARITY CLOUDY; URINE COLOR YELLOW; URINE GLUCOSE-RANDOM* NEGATIVE (Negative); URINE KETONES NEGATIVE (Negative); URINE NITRITE-REFLEX NEGATIVE (Negative); URINE PROTEIN (DIPSTICK) NEGATIVE (Negative); URINE SPECIFIC GRAVITY 1.015 (1.005-1.035); URINE UROBILINOGEN 0.2 E.U./dl (0.2-1.0)
[2019-03-14 22:35] LABS: ICTOTEST (BILI CONFIRMATORY) Negative (Negative); URINE BILIRUBIN NEGATIVE (Negative); URINE LEUKOCYTES-REFLEX 3+ (Negative)
[2019-03-14 22:37] LABS: SQUAMOUS >10 Many /LPF (0-3)
[2019-03-14 22:38] LABS: BACTERIA-REFLEX >30 Many /HPF (None Seen); CASTS None Seen /LPF (None Seen); CRYSTALS None Seen /LPF (None Seen); URINE RBC 0-2 Rare /HPF (0-2); URINE WBC-REFLEX >25 Many /HPF (0-5)
[2019-03-14 22:49] LABS: URINE CREATININE-RANDOM* 99.4 mg/dL
[2019-03-14 23:59] VITALS: BP 149/74
[2019-03-15 03:57] VITALS: BP 113/57
[2019-03-15 04:43] VITALS: BP 113/57
--- NOTE | 2019-03-15 05:08 | NUR ---
ASSESSMENT DOCUMENTED.PT A/OX2-3.PT BEEN VERY LETHARGIC AND VERY DROWSY,EASY TO BE AROUSED.RESPONDS APPROPRIATELY TO YES/NO QUESTIONS AND APPRECIATIVE WHEN CARE IS GIVEN.DENIES PAIN.STATES SHE IS TIRED AND SLEEPY.SR ON MONITOR.ON O2 AT 2LITERS BUT WAS MOSTLY ON CPAP THROUGH THE NIGHT,SATS ADEQUATE.NOTED EXTERME WEAKNESS TO LEFT SIDE PROBABLY D/T HX CVA.PADILLA CATHETER INSERTION PER ORDERS,TOLERATED.PT HAVING INADEQUATE UO,A BOLUS OF 1000ML GIVEN AND NOW 1/2 NS INFUSING AT 125CC/HR.STARTED ON ABT THERAPY FOR UTI,PADILLA DD,DARK YELLOW,CLODY URINE WITH SEDIMENT.MEDS RECONCILLED PER HALFWAY MED LIST.PT UNABLE TO SIGN CONSENTS FORM,WILL TRY HEN FULLY AWAKE.NOTED WOUNDS TO BUTTOCK ,WOUND CULTURE COLLECTED PER ORDERS,PICTURES TAKEN AND PLACED IN THE CHART.TURNE AND REPOSITIONED Q2H.CT SCAN OF THE HEAD COMPLETED..NO OTHER CONCERNS NOTED AT THIS TIME.WILL CONT TO MONITOR PER POC.
[2019-03-15 05:29] LABS: ABSOLUTE NEUTROPHILS 6.7 thou/uL (1.4-8.2); BASOPHILS 0.8 % (0.0-2.0); EOSINOPHILS 2.6 % (0.0-3.0); HEMATOCRIT 48.5 % (37.0-47.0); HEMOGLOBIN 15.3 gm/dL (12.0-15.0); MCHC 31.6 g/dL (28.0-37.0); MCV 98.3 fL (80.0-100.0); MONOCYTES 7.3 % (1.0-8.0); POLYS 77.3 % (36.0-66.0); RBC 4.94 mil/uL (4.20-5.00); RDW 15.3 % (10.5-14.5); WBC 8.6 thou/uL (4.0-11.0)
[2019-03-15 05:40] LABS: PLATELET COUNT 167 thou/uL (150-400)
[2019-03-15 05:44] LABS: INR 1.4; PROTIME 14.7 Seconds (9.3-11.4)
[2019-03-15 05:49] LABS: ALBUMIN 1.7 g/dL (3.4-5.0); CALCIUM 8.3 mg/dL (8.5-10.1); CREATININE 0.6 mg/dL (0.6-1.0); POTASSIUM 3.2 mmol/L (3.5-5.1); TOTAL BILIRUBIN 0.8 mg/dL (<0.1-1.0); TOTAL PROTEIN 6.3 g/dL (6.4-8.2)
[2019-03-15 07:40] VITALS: BP 117/44
--- NOTE | 2019-03-15 10:40 | NUR ---
FAXED H/P TO [facility] SPOKE WITH BABAK IN ADM SHE RECEIVED UPDATE. DP TO FOLLOW.
[2019-03-15 11:00] VITALS: BP 91/44
--- NOTE | 2019-03-15 13:43 | NUR ---
Case opened to follow for dc planning. Pt is sleeping this am and aggitated this afternoon. Chart reviewed case discussed with admissions at [facility]. She has been a ltc resident there for many years and they are holding her bed. They faxed copy of her DNR form legal guardianship document. The pt had a stroke in her approx 20 years ago leaving her with lt sided deficit. She is up to a w/c at the facility and requires assist with all of her adl's. Fisher Weir spoke with her brother Eric who is her legal guardian. He lives in [place] and has given dpoa to her dtr Nel. He would like Nel to be updated and sign any admission paperwork. He is agreeable to her return to ltc at [facility] when stable. Nel notified and updated.She will be in later today or in the am to sign paperwork and visit. She will bring a copy of her DPOA document for chart. Pt admitted due for low potassium and elev sodium as well as UTI. Dc airport planner to fax h/p to [facility].Will follow.
[2019-03-15 16:00] VITALS: BP 96/55
--- NOTE | 2019-03-15 18:14 | NUR ---
ASSUMED CARE OF PT AT SHIFT CHANGE. ASSESSMENTS CHARTED. MEDS GIVEN PER APR. VSS. PT A&OX3. STILL VERY SLEEPY AND LETHARGIC. LITTLE INTAKE. WILL CONTINUE TO MONITOR AND FOLLOW POC.
[2019-03-15 20:09] VITALS: BP 113/59
[2019-03-16 03:19] VITALS: BP 106/51
[2019-03-16 06:06] LABS: ALBUMIN 1.7 g/dL (3.4-5.0); CALCIUM 7.4 mg/dL (8.5-10.1); CREATININE 0.6 mg/dL (0.6-1.0); PHOSPHORUS 2.3 mg/dL (2.5-4.9); POTASSIUM 3.6 mmol/L (3.5-5.1)
--- NOTE | 2019-03-16 06:43 | NUR ---
ASSESSMENT DOCUMENTED.PT BEEN RESTING IN NO ACUTE DISTRESS.A/OX3.VSS.CPAP ON THROUGH THE NOC,SATS ADEQUATE.CONT ON IVF PER ORDERS.ELYTES IMPROVED.NA+ WITHIN NORMAL ALONG WITH K+.PT MORE AWAKE AD MORE RESPONSIVE TO CONVERSATION.PADILLA DD,URINE REMAINS CLOUDY WITH SEDIMENT,400CC THIS SHIFT.ABT FOR UTI.DRESSING INTACT TO BUTTOCK ULCER.REPOSITIONED FREQUENTLY.DENIES PAIN OR ANY DISTRESS AT THIS TIME.WILL CONT TO MONITOR.
[2019-03-16 07:38] VITALS: BP 104/67
--- NOTE | 2019-03-16 10:45 | NUR ---
Possible dc back to ltc at [facility] today, awaiting physician rounds. DPOA document for dtr Nel is on the chart. Nel notified of possible dc today. Chart copy in progress. Pt will need stretcher arranged.
[2019-03-16] MEDS ORDERED: LEVAQUIN 500 M500 M3 PO (11:41)
[2019-03-16 11:47] VITALS: BP 102/57
--- NOTE | 2019-03-16 13:19 | NUR ---
PT DISCHARGING TODAY TO [facility] FAXED DC ORDERS/SUMMARY TO FACILITY SPOKE WITH BABAK IN ADM SHE RECEIVED DC ORDERS. ARRANGED TRANSPORT BY [facility]AN THROUGH [facility] TRIP #[id number] THEY WILL PICK PT UP BETWEEN [phone] TODAY. NOTIFIED PT'S DTR (CESARIO) OF DC AND TIME OF TRANSPORT. UNIT NOTIFIED AND CHART COPY PER US. RN TO CALL REPORT TO [phone].
--- NOTE | 2019-03-16 14:40 | NUR ---
ASSUMED CARE AT 0700, SHIFT ASSESSMENT DONE, MEDS GIVEN, VSS. REPORTED PAIN, PRN PAIN MEDS GIVEN. PADILLA WAS TAKEN OUT. IV WAS TAKEN OUT. PT LEFT AT 1430. REPORT CALLED AND GIVEN TO FELIPE.
--- NOTE | 2019-03-19 07:39 | HC ---
[facility] [place] [address] CONSULTATION Name: MARISELA JOHN Room #: 213-P [facility] IN M.R.#: [id number] Admission: 03/14/19 Attend Phys: Sara Winston MD Discharge: 03/16/19 Date of : 51 Report #: [id number] THIS REPORT FOR: cc: Malou Hernandez,Andrés Linares MD ~ THIS REPORT FOR: //name// CC: Malou Winston DATE OF SERVICE: 03/15/2019 CHIEF COMPLAINT: Gluteal pressure ulceration. HISTORY OF PRESENT ILLNESS: This is a 63-year-old female patient with a history of left hemiplegia due to previous cerebrovascular accident, who was admitted for hypersomnolence and UTI and hypernatremia. She was also noted to have gluteal pressure ulceration and I have been asked to see her in regard to wound care. The patient is a bit somnolent, does awaken. She knows that she is overweight. She is aware that she has a pressure ulcer on her buttocks. She is not able to provide much more information about herself. PAST MEDICAL HISTORY: Positive for hyperlipidemia, hypertension, a hemorrhagic cerebrovascular accident 40 years ago leaving with her dense left hemiplegia, hypothyroidism and [employer] shunt placement. ALLERGIES: PENICILLIN. SOCIAL HISTORY: The patient resides in a skilled nursing. FAMILY HISTORY: Unknown. REVIEW OF SYSTEMS: Really unable to be obtained due to the patient's mental status other than that mentioned in the history of present illness. MEDICATIONS: Include Vimpat, atorvastatin, levothyroxine, phenytoin, Xarelto, aspirin, baclofen. PHYSICAL EXAMINATION: VITAL SIGNS: Temperature 97.3, pulse 58, respiratory rate 17, blood pressure 113/59. GENERAL: This is a chronically ill-appearing female patient who appears to be in minimal distress. HEENT: Head normocephalic. NECK: Supple. [facility] [address] [place] [address] CONSULTATION Name: [facility] Room #: 213-P [facility] IN ..#: [id number] Admission: 03/14/19 Attend Phys: Sara Winston MD Discharge: 03/16/19 Date of : 51 Report #: [id number] LUNGS: Clear. HEART: Regular rhythm. ABDOMEN: Bowel sounds present. She is obese. EXTREMITIES: Lower extremities show heels are intact. She has unstageable pressure ulcer to the left gluteal region. It is covered with some superficial eschar. It is not infected. NEUROLOGIC: The patient has a dense left hemiplegia. LABORATORY DATA: White blood cell count 13.4, hemoglobin 17.2. Sodium 143, potassium 3.6, chloride 105, BUN 22, creatinine 0.6. CLINICAL IMPRESSION: 1. Unstageable pressure ulcer to the left buttock. 2. Family history of cerebrovascular accident with dense left hemiplegia. 3. Morbid obesity. 4. Hypertension. 5. Peripheral neuropathy. 6. Severe protein-calorie malnutrition with albumin 1.7. 7. Generalized debility. RECOMMENDATIONS: At this point in time, we recommend Bordered Foam placed to the left buttock. She will need a low air loss mattress with q. 2 hour turning and positioning; maximum nutritional support; for wound healing, heel protectors. Continue current medications and PT, OT as tolerated. I appreciate being asked to see her in consultation. <ELECTRONICALLY SIGNED> By: Andrés Alan MD 03/19/19 [id number] Andrés Alan MD /nt
== END 2019-03-16 14:42 | DRG 640 ==
LOC: ER 11:18 → EROBS 14:16 → 2N 18:27
PROVIDERS: Emergency Medicine; Hospitalist; ADMIT Internal Medicine
PROC: 5A09357 Assistance with Respiratory Ventilation, Less than 24 Consecutive Hours, Continuous Positive Airway Pressure (ICD-10-PCS; principal; 2019-03-14)
PROC: 5A09357 Assistance with Respiratory Ventilation, Less than 24 Consecutive Hours, Continuous Positive Airway Pressure (ICD-10-PCS; 2019-03-15)
PROC: 5A09357 Assistance with Respiratory Ventilation, Less than 24 Consecutive Hours, Continuous Positive Airway Pressure (ICD-10-PCS; 2019-03-16)
DX: E86.0 Dehydration (principal); E43 Unspecified severe protein-calorie malnutrition; N39.0 Urinary tract infection, site not specified; I69.354 Hemiplegia and hemiparesis following cerebral infarction affecting left non-dominant side; E87.0 Hyperosmolality and hypernatremia; L89.320 Pressure ulcer of left buttock, unstageable; I10 Essential (primary) hypertension; E78.5 Hyperlipidemia, unspecified; E03.9 Hypothyroidism, unspecified; G62.9 Polyneuropathy, unspecified; F32.9 Major depressive disorder, single episode, unspecified; E78.00 Pure hypercholesterolemia, unspecified; G47.00 Insomnia, unspecified; E87.6 Hypokalemia; G47.33 Obstructive sleep apnea (adult) (pediatric); E66.01 Morbid (severe) obesity due to excess calories; R53.81 Other malaise; G40.909 Epilepsy, unspecified, not intractable, without status epilepticus; Z66 Do not resuscitate; E87.8 Other disorders of electrolyte and fluid balance, not elsewhere classified; J44.9 Chronic obstructive pulmonary disease, unspecified; Z79.01 Long term (current) use of anticoagulants; Z86.718 Personal history of other venous thrombosis and embolism; Z87.440 Personal history of urinary (tract) infections; Z90.49 Acquired absence of other specified parts of digestive tract; Z79.899 Other long term (current) drug therapy; Z79.82 Long term (current) use of aspirin; Z88.0 Allergy status to penicillin; Z82.3 Family history of stroke; Z68.38 Body mass index [BMI] 38.0-38.9, adult
CPT/HCPCS: 10081

== ENCOUNTER 2019-07-11 10:13 | Emergency (ER) | payer OTHER ==
[~2019-07-11] VITALS: Ht 170.2 cm; Wt 101.2 kg
[~2019-07-11 10:13] MED LIST changes: +LEVAQUIN 500 M500 M3 PO
[2019-07-11 12:55] LABS: ABSOLUTE NEUTROPHILS 6.7 thou/uL (1.4-8.2); EOSINOPHILS 1.7 % (0.0-3.0); HEMATOCRIT 43.1 % (37.0-47.0); HEMOGLOBIN 14.4 gm/dL (12.0-15.0); LYMPHOCYTES 20.4 % (24.0-44.0); MCH 31.5 pg (26.0-34.0); MCHC 33.4 g/dL (28.0-37.0); MCV 94.4 fL (80.0-100.0); MONOCYTES 8.2 % (1.0-8.0); POLYS 68.7 % (36.0-66.0); RBC 4.57 mil/uL (4.20-5.00); RDW 14.5 % (10.5-14.5); WBC 9.8 thou/uL (4.0-11.0)
[2019-07-11 12:59] LABS: CALCIUM 8.5 mg/dL (8.5-10.1); CREATININE 0.7 mg/dL (0.6-1.0); MAGNESIUM 2.1 mg/dL (1.8-2.4)
[2019-07-11] MEDS ORDERED: LEVOTHYROXINE200 MC1 PO (12:59)
[2019-07-11] MEDS ORDERED: PHENYTOIN SODI100 M3 PO (13:00)
[2019-07-11] MEDS ORDERED: DULOXETINE HCL30 MG PO (13:02)
[2019-07-11 13:21] LABS: PLATELET COUNT 240 thou/uL (150-400)
[2019-07-11 18:44] VITALS: BP 134/81
== END 2019-07-11 18:44 | disposition home or self-care (01) ==
LOC: ER 10:13
PROVIDERS: Emergency Medicine
DX: L89.159 Pressure ulcer of sacral region, unspecified stage (principal); E66.9 Obesity, unspecified; I10 Essential (primary) hypertension; G62.9 Polyneuropathy, unspecified; E03.9 Hypothyroidism, unspecified; E78.00 Pure hypercholesterolemia, unspecified; Z88.0 Allergy status to penicillin; Z79.82 Long term (current) use of aspirin; Z79.899 Other long term (current) drug therapy; Z86.73 Personal history of transient ischemic attack (TIA), and cerebral infarction without residual deficits; Z86.718 Personal history of other venous thrombosis and embolism; Z90.49 Acquired absence of other specified parts of digestive tract

== ENCOUNTER → 2019-08-10 | Outpatient (CLI) | payer OTHER ==
[~2019-08-10] MED LIST changes: +DULOXETINE HCL30 MG PO; +LEVOTHYROXINE200 MC1 PO; +PHENYTOIN SODI100 M3 PO
== END ==
LOC: HYPER 09:33
PROVIDERS: ATTEND Emergency Medicine Emergency Medical Services
DX: L89.323 Pressure ulcer of left buttock, stage 3 (principal); I69.359 Hemiplegia and hemiparesis following cerebral infarction affecting unspecified side; J44.9 Chronic obstructive pulmonary disease, unspecified; I10 Essential (primary) hypertension; E03.9 Hypothyroidism, unspecified; K59.00 Constipation, unspecified; G47.00 Insomnia, unspecified; I25.10 Atherosclerotic heart disease of native coronary artery without angina pectoris; G91.9 Hydrocephalus, unspecified; K64.9 Unspecified hemorrhoids; M62.81 Muscle weakness (generalized); E78.5 Hyperlipidemia, unspecified; R60.9 Edema, unspecified; G43.901 Migraine, unspecified, not intractable, with status migrainosus; R32 Unspecified urinary incontinence; E66.9 Obesity, unspecified; G47.30 Sleep apnea, unspecified; F32.9 Major depressive disorder, single episode, unspecified; Z68.34 Body mass index [BMI] 34.0-34.9, adult; Z79.01 Long term (current) use of anticoagulants; Z87.891 Personal history of nicotine dependence

== ENCOUNTER → 2019-08-24 | Outpatient (CLI) | payer OTHER | LOC: HYPER 08:44 | PROVIDERS: ATTEND Emergency Medicine | DX: L89.323 Pressure ulcer of left buttock, stage 3 (principal); I69.359 Hemiplegia and hemiparesis following cerebral infarction affecting unspecified side; J44.9 Chronic obstructive pulmonary disease, unspecified; I10 Essential (primary) hypertension; E03.9 Hypothyroidism, unspecified; K59.00 Constipation, unspecified; I25.10 Atherosclerotic heart disease of native coronary artery without angina pectoris; G91.9 Hydrocephalus, unspecified; K64.9 Unspecified hemorrhoids; M62.81 Muscle weakness (generalized); E78.5 Hyperlipidemia, unspecified; G43.901 Migraine, unspecified, not intractable, with status migrainosus; R32 Unspecified urinary incontinence; E66.9 Obesity, unspecified; G47.30 Sleep apnea, unspecified; G47.00 Insomnia, unspecified; F32.9 Major depressive disorder, single episode, unspecified; Z68.34 Body mass index [BMI] 34.0-34.9, adult; Z87.891 Personal history of nicotine dependence; Z79.01 Long term (current) use of anticoagulants ==

== ENCOUNTER → 2020-03-06 | Outpatient (CLI) | payer OTHER | LOC: HYPER 13:03 | PROVIDERS: ATTEND Emergency Medicine | DX: L89.323 Pressure ulcer of left buttock, stage 3 (principal); I69.351 Hemiplegia and hemiparesis following cerebral infarction affecting right dominant side; E03.9 Hypothyroidism, unspecified; E66.01 Morbid (severe) obesity due to excess calories; E78.5 Hyperlipidemia, unspecified; I25.10 Atherosclerotic heart disease of native coronary artery without angina pectoris; I10 Essential (primary) hypertension; G47.00 Insomnia, unspecified; G91.9 Hydrocephalus, unspecified; G47.30 Sleep apnea, unspecified; G43.901 Migraine, unspecified, not intractable, with status migrainosus; R60.9 Edema, unspecified; R32 Unspecified urinary incontinence; J44.9 Chronic obstructive pulmonary disease, unspecified; K59.00 Constipation, unspecified; K64.9 Unspecified hemorrhoids; M62.81 Muscle weakness (generalized); F32.9 Major depressive disorder, single episode, unspecified; F41.9 Anxiety disorder, unspecified; Z68.34 Body mass index [BMI] 34.0-34.9, adult; Z48.815 Encounter for surgical aftercare following surgery on the digestive system; Z87.891 Personal history of nicotine dependence; Z90.49 Acquired absence of other specified parts of digestive tract ==

== ENCOUNTER → 2020-03-27 | Outpatient (CLI) | payer OTHER | LOC: HYPER 12:18 | PROVIDERS: ATTEND Emergency Medicine | DX: L89.323 Pressure ulcer of left buttock, stage 3 (principal); I69.351 Hemiplegia and hemiparesis following cerebral infarction affecting right dominant side; E03.9 Hypothyroidism, unspecified; E66.01 Morbid (severe) obesity due to excess calories; E78.5 Hyperlipidemia, unspecified; I25.10 Atherosclerotic heart disease of native coronary artery without angina pectoris; I10 Essential (primary) hypertension; G47.00 Insomnia, unspecified; G91.9 Hydrocephalus, unspecified; G47.30 Sleep apnea, unspecified; G43.901 Migraine, unspecified, not intractable, with status migrainosus; R60.9 Edema, unspecified; R32 Unspecified urinary incontinence; J44.9 Chronic obstructive pulmonary disease, unspecified; K59.00 Constipation, unspecified; K64.9 Unspecified hemorrhoids; M62.81 Muscle weakness (generalized); F32.9 Major depressive disorder, single episode, unspecified; F41.9 Anxiety disorder, unspecified; Z68.34 Body mass index [BMI] 34.0-34.9, adult; Z48.815 Encounter for surgical aftercare following surgery on the digestive system; Z87.891 Personal history of nicotine dependence ==